=== PATIENT | male | born 1965 | race Caucasian/White ===

== ENCOUNTER 2018-12-23 12:02 | Day surgery (SDC) | payer BC ==
[2018-12-23 13:45] LABS: ADD MAN DIFF? NO
[2018-12-23 13:47] LABS: WHITE BLOOD COUNT 8.3 10^3/ul (4.8-10.8)
[2018-12-23 13:47] LABS: BASOPHILS % 0.5 % (0.0-2.0); EOSINOPHILS # 0.1 10^3/ul (0.0-0.5); EOSINOPHILS % 1.1 % (0.0-7.0); HEMATOCRIT 39.2 % (42.0-52.0); HEMOGLOBIN 13.2 g/dl (14.0-18.0); LYMPHOCYTES # 3.1 10^3/ul (0.8-2.9); LYMPHOCYTES % 36.8 % (15.0-51.0); MEAN CORPUSCULAR HEMOGLOBIN 28.4 pg (29.0-33.0); MEAN CORPUSCULAR HGB CONC 33.7 g/dl (32.0-37.0); MEAN CORPUSCULAR VOLUME 84.5 fl (82.0-101.0); MEAN PLATELET VOLUME 10.1 fl (7.4-10.4); MONOCYTE # 0.5 10^3/ul (0.3-0.9); MONOCYTES % 6.1 % (0.0-11.0); NEUTROPHIL # 4.6 10^3/ul (1.6-7.5); NEUTROPHILS % 55.3 % (39.0-77.0); PLATELET COUNT 212 10^3/UL (140-415); RED BLOOD COUNT 4.64 10^6/ul (4.70-6.10); RED CELL DISTRIBUTION WIDTH 13.1 % (11.5-14.5)
[2018-12-23 14:05] LABS: ANION GAP 9 (5-13); BLOOD UREA NITROGEN 10 mg/dl (7-20); CALCIUM 9.4 mg/dl (8.4-10.2); CARBON DIOXIDE 27 mmol/L (21-31); CHLORIDE 106 mmol/L (97-110); CREATININE 0.87 mg/dl (0.61-1.24); Estimated GFR > 60 mL/min (>60); GLUCOSE 131 mg/dl (70-220); POTASSIUM 4.5 mmol/L (3.5-5.1); SODIUM 142 mmol/L (135-144)
[2018-12-23 14:07] LABS: INR 0.97
[2018-12-23] MEDS ORDERED: PROPOFOL 20 ML ×4 (14:29→17:03)
[2018-12-23] MEDS ORDERED: MIDAZOLAM 1 MG/ML 2 ML INJ (14:29)
[2018-12-23] MEDS ORDERED: LIDOCAINE 2% (SDV) 5 ML INJ (14:29)
[2018-12-23] MEDS ORDERED: HYDROmorphONE 1 MG/5 ML IV SYRINGE IV ×3 (14:30)
[2018-12-23] MEDS ORDERED: FENTAnyl 50 MCG/ML VIAL IV (14:30)
[2018-12-23] MEDS ORDERED: PROCHLORPERAZINE 10 MG INJ IV (14:30)
[2018-12-23] MEDS ORDERED: MEPERIDINE 25 MG INJ IV (14:30)
[2018-12-23] MEDS ORDERED: OXYCODONE/ACETAMINOPHEN (5/325) TAB PO (14:30)
[2018-12-23] MEDS ORDERED: DIPHENHYDRAMINE 50 MG INJ IV (14:30)
[2018-12-23] MEDS ORDERED: ONDANSETRON 4 MG INJ IV (14:30)
[2018-12-23] MEDS ORDERED: FENTAnyl 50 MCG/ML VIAL (14:35)
[2018-12-23] MEDS ORDERED: CEFAZOLIN 1 GM INJ (14:40)
[2018-12-23] MEDS: BUPIVACAINE 0.25% (MPF) 30 ML INJ (14:56)
[2018-12-23] MEDS: LIDOCAINE 1% (MPF) 30 ML INJ (15:20)
[2018-12-23] MEDS ORDERED: HYDROmorphONE 2 MG/ML SYG (16:41)
[2018-12-23] MEDS ORDERED: PROPOFOL 100 ML (16:42)
[2018-12-23] MEDS: DOCUSATE SODIUM 100 MG CAP PO (18:33)
== END 2018-12-23 19:04 | disposition home or self-care (01) ==
LOC: SDS 12:02
DX: M96.1 Postlaminectomy syndrome, not elsewhere classified (principal); M54.16 Radiculopathy, lumbar region; I10 Essential (primary) hypertension; E11.9 Type 2 diabetes mellitus without complications
CPT/HCPCS: 62362; 72110; 80048; 82962; 85025; 85610; 85730; 88300